=== PATIENT | male | born 1995 | race African-American/Black ===

== ENCOUNTER 2018-09-02 00:32 | Emergency (ER) | payer MEDICAID ==
[~2018-09-02] VITALS: Ht 172.7 cm; Wt 81.6 kg
[2018-09-02] MEDS ORDERED: ONDANSETRON HCL 4 MG/2 ML VIAL IV ONE (01:00)
[2018-09-02] MEDS ORDERED: HYDROmorphone HCL 2 MG/ML VL IV ONE (01:00)
[2018-09-02 01:22] VITALS: BP 136/77
[2018-09-02] MEDS ORDERED: ETOMIDATE (2MG/ML) 20ML VIAL IV ONE (02:00)
== END 2018-09-02 03:50 | disposition home or self-care (01) ==
LOC: ER 00:36
DX: S43.015A Anterior dislocation of left humerus, initial encounter (principal); F17.210 Nicotine dependence, cigarettes, uncomplicated; F12.90 Cannabis use, unspecified, uncomplicated; W11.XXXA Fall on and from ladder, initial encounter; Y93.89 Activity, other specified; Y99.8 Other external cause status; Y92.89 Other specified places as the place of occurrence of the external cause
CPT/HCPCS: 23650; 73020; 73030; 96374; 96375; 99152; 99285; J1170; J2405

== ENCOUNTER 2018-09-04 16:36 | Emergency (ER) | payer MEDICAID ==
[~2018-09-04] VITALS: Ht 177.8 cm; Wt 81.6 kg
[2018-09-04 17:36] VITALS: BP 143/71
[2018-09-04] MEDS ORDERED: ONDANSETRON HCL 4 MG/2 ML VIAL IV ONE (19:45)
[2018-09-04] MEDS ORDERED: ETOMIDATE (2MG/ML) 20ML VIAL IV ONE (19:45)
[2018-09-04] MEDS ORDERED: MORPHINE SULFATE 10 MG/ML INJ 1ML SDV IV ONE (19:45)
== END 2018-09-04 20:57 | disposition home or self-care (01) ==
LOC: ER 16:40
DX: M24.412 Recurrent dislocation, left shoulder (principal); F17.210 Nicotine dependence, cigarettes, uncomplicated; F12.10 Cannabis abuse, uncomplicated
CPT/HCPCS: 23650; 73020; 73030; 96374; 96375; 99285; J2270; J2405; J7030